=== PATIENT | female | born 1990 | race Hispanic/Latino ===

== ENCOUNTER 2021-06-04 17:11 | Emergency (ER) | payer OTHER ==
[~2021-06-04] VITALS: Ht 162.6 cm; Wt 95.3 kg
[2021-06-04] MEDS ORDERED: ACETAMINOPHEN WITH CODEINE 1 TAB TAB PO ONE (18:00)
[2021-06-04] MEDS ORDERED: PREDNISONE 20 MG TABLET PO ONE (18:00)
[2021-06-04] MEDS ORDERED: ALBUTEROL INHALER 90MCG/INH IH PRN (18:00)
[2021-06-04] MEDS ORDERED: AMOX/CLAV 875/125MG TAB PO ONE (18:00)
[2021-06-04 18:29] VITALS: BP 117/74
[2021-06-04] MEDS ORDERED: D-ME1POW16 PO (18:47)
[2021-06-04] MEDS ORDERED: AMOX-429 PO (18:47)
[2021-06-04] MEDS ORDERED: ALBU8.5H8 IH (18:47)
== END 2021-06-04 18:59 | disposition home or self-care (01) ==
LOC: EEVIPCON 17:11 → EDH 17:11
DX: J40 Bronchitis, not specified as acute or chronic (principal); Z20.822 Contact with and (suspected) exposure to COVID-19; E11.9 Type 2 diabetes mellitus without complications; Z79.52 Long term (current) use of systemic steroids; Z79.899 Other long term (current) drug therapy
CPT/HCPCS: 71045; 87635; 87804 ×2; 87880; 99284; C9803